=== PATIENT | male | born 2000 | race Caucasian/White ===

== ENCOUNTER 2020-08-07 01:43 | Emergency (ER) | payer BC, MEDICAID ==
[~2020-08-07] VITALS: Ht 167.6 cm; Wt 63.5 kg
[2020-08-07 02:11] VITALS: BP 145/82
== END 2020-08-07 03:12 | disposition home or self-care (01) ==
LOC: EDBD 01:43 → ER 01:45
DX: T40.411A Poisoning by fentanyl or fentanyl analogs, accidental (unintentional), initial encounter (principal); F17.210 Nicotine dependence, cigarettes, uncomplicated; X58.XXXA Exposure to other specified factors, initial encounter; Y93.89 Activity, other specified; Y92.89 Other specified places as the place of occurrence of the external cause; Y99.8 Other external cause status
CPT/HCPCS: 71045; 93005